=== PATIENT | male | born 1955 | race Caucasian/White ===

== ENCOUNTER 2024-03-21 19:18 | Emergency (ER) | payer MEDICARE | END 2024-03-22 01:34 | disposition home or self-care (01) | LOC: ERS 19:18 | DX: R53.83 Other fatigue (principal); I10 Essential (primary) hypertension; F17.220 Nicotine dependence, chewing tobacco, uncomplicated | CPT/HCPCS: 36415; 70450; 80053; 81001; 83605; 83690; 83735; 84484; 85025; 85610; 85730; 87040; 93005 ==